=== PATIENT | female | born 1995 | race Caucasian/White ===

== ENCOUNTER 2025-08-10 08:14 | Emergency (ER) | payer MEDICAID ==
[~2025-08-10] VITALS: Ht 157.5 cm; Wt 77.0 kg
[2025-08-10 08:19] VITALS: O2SAT 99
[2025-08-10 10:08] LABS: BASOPHILS % 0.4 % (0.0-2.0); EOSINOPHILS % 0.5 % (0.0-5.0); HEMATOCRIT. 40.9 % (36.0-48.0); HEMOGLOBIN. 13.8 g/dL (12.0-16.0); LYMPHOCYTES % 18.2 % (20.0-50.0); MEAN PLATELET VOLUME 8.7 fl (7.4-10.4); MONOCYTES % 5.4 % (2.0-8.0); NEUTROPHILS % 75.5 % (40.0-76.0); PLATELET 316 x1000/uL (130-400); RED BLOOD CELL COUNT 4.28 mill/uL (4.2-5.4); RED CELL DISTRIBUTION WIDTH 13.6 % (11.6-14.6)
[2025-08-10 10:27] LABS: CREATININE 0.7 mg/dL (0.6-1.0)
[2025-08-10 10:28] LABS: UREA NITROGEN BLOOD 6 mg/dL (9-23)
[2025-08-10 10:34] LABS: HCG SCREEN NEGATIVE
[2025-08-10 11:01] LABS: CLARITY URINE CLOUDY (CLEAR); COLOR URINE YELLOW (YELLOW); GLUCOSE URINE NEGATIVE (NEGATIVE); KETONES URINE NEGATIVE (NEGATIVE); OCCULT BLOOD URINE 1+ (NEGATIVE); PH URINE 8.0 (4.5-8.0); PROTEIN URINE NEGATIVE (NEGATIVE); SPECIFIC GRAVITY URINE 1.016 (1.005-1.030)
[2025-08-10 11:02] LABS: LEUKOCYTE ESTERASE URINE 3+ (NEGATIVE); NITRITE URINE NEGATIVE (NEGATIVE); UROBILINOGEN URINE 0.2 E.U./dL (0.2-1.0)
[2025-08-10 11:19] LABS: BACTERIA URINE 3+; SQUAMOUS EPITHELIAL CELL URINE 1+ /lpf (RARE/1+)
[2025-08-10 11:20] LABS: WBC URINE 15-25 /hpf (0-2)
[2025-08-10] MEDS ORDERED: CEPH500C2 MT (11:23)
[2025-08-10] MEDS ORDERED: IBUP-1455 MT (11:23)
[2025-08-10 11:49] VITALS: BP 112/68; PULSE 72; RESP 16; TEMP 36.7; O2SAT 99
[2025-08-10] MEDS: KETOROLAC 30MG/ML VIAL IM ONE (11:49)
[2025-08-10] MEDS: CEFTRIAXONE SODIUM 1G VIAL IM ONE (11:49)
== END 2025-08-10 11:54 | disposition home or self-care (01) ==
LOC: ER 08:14 → EDBD 08:14 → ER 11:54
DX: N12 Tubulo-interstitial nephritis, not specified as acute or chronic (principal); Z87.440 Personal history of urinary (tract) infections; Z88.6 Allergy status to analgesic agent
CPT/HCPCS: 80048; 81003; 84703; 85025; 87086; 87186; 87077; 36415; 96372; 99284; J0696; J1885; Z7610